=== PATIENT | male | born 1995 | race Caucasian/White ===

== ENCOUNTER → 2016-10-03 | Outpatient (CLI) | payer BC ==
--- NOTE | 2016-10-03 16:07 | CT ---
EXAMINATION TYPE: CT sinus wo con DATE OF EXAM: 10/03/2016 3:39 PM COMPARISON: NONE HISTORY: facial pressure and congestion. History of sinus surgery CT DLP: 673.[address] of the paranasal sinuses was performed in the axial and coronal planes. Bone and soft tissue settings are submitted. The paranasal sinuses demonstrate normal aeration and development. Large mucous retention cyst within the right maxillary sinus measuring 4.0 x 2.8 cm. Left maxillary s inus, ethmoid air cells, frontal sinus and sphenoid sinus are all well aerated. The osteal meatal units are patent bilaterally. The nasal septum is midline. No bony destructive changes are seen within the field of view. IMPRESSION: Large mucous retention cyst right maxillary sinus.
== END ==
LOC: RADCTMAIN 15:17
PROVIDERS: ATTEND Otolaryngology
DX: J34.1 Cyst and mucocele of nose and nasal sinus (principal)
CPT/HCPCS: 70486

== ENCOUNTER 2016-11-15 07:59 | Day surgery (SDC) | payer BC ==
[2016-11-13 14:24] VITALS: BMI 21.1
[~2016-11-15 07:59] MED LIST: ACETAMINOPHEN TAB 500 MG TAB PO ONE; CLINDAMYCIN 600 MG in DEXTROSE 5% IN WATER 50 ML IVPB ONE; DEXAMETHASONE SOD PHOSPHATE 10 MG/ML 1 ML VIAL IV ONE; DEXAMETHASONE SOD PHOSPHATE 4 MG/ML 1 ML VIAL IV ONE; FAMOTIDINE 20 MG/2 ML VIAL IV ONE; LACTATED RINGERS 1,000 ML IV SCH; LIDOCAINE 1% 20 ML VIAL (10MG/ML) FOR IV START INTRADERMA PRN; MIDAZOLAM 2 MG/2 ML VIAL IV PRN; ONDANSETRON 4 MG/2 ML VIAL IVP ONE; SCOPOLAMINE 1.5MG/72HR PATCH TRANSDERM ONE
[2016-11-15] MEDS ORDERED: OXYMETAZOLINE 0.05% NASL SPRAY 15 ML NASAL ONE ×4 (08:20→09:28)
[2016-11-15] MEDS ORDERED: LIDOCAINE 1% INJ 10MG/ML (20 ML MDV) ONE (09:00)
[2016-11-15] MEDS ORDERED: SUCCINYLCHOLINE CHLORIDE VIAL 200 MG/10 ML VIAL IV ONE (09:00)
[2016-11-15] MEDS ORDERED: fentaNYL (PF) 50 MCG/ML 2 ML AMP ONE (09:00)
[2016-11-15] MEDS ORDERED: PROPOFOL 10 MG/ML 20 ML VIAL IV ONE (09:00)
[2016-11-15] MEDS ORDERED: MIDAZOLAM 2 MG/2 ML VIAL ONE (09:00)
[2016-11-15] MEDS ORDERED: DEXAMETHASONE SOD PHOS (MDV) 100 MG/10 ML VIAL ONE (09:00)
[2016-11-15] MEDS ORDERED: BUPIVACAIN-EPI 0.5%-1:200,000 30 ML VIAL SQ ONE ×2 (09:13)
[2016-11-15] MEDS ORDERED: LIDOCAINE 1%-EPI 1:100,000 20 ML VIAL SUBMUCOSAL ONE ×2 (09:14)
[2016-11-15] MEDS ORDERED: EPINEPHrine 1 MG/ML (MDV) 30 ML VIAL TOPICAL ONE (09:15)
[2016-11-15 10:33] VITALS: TEMP 98
--- NOTE | 2016-11-15 10:33 | P.OP ---
Date of Procedure: 11/15/16 Preoperative Diagnosis: Chronic maxillary sinusitis Right maxillary sinus polyp Deviated nasal septum Postoperative Diagnosis: Same Procedure(s) Performed: Septoplasty Bilateral functional endoscopic sinus surgery with infraturbinal maxillary antrostomies and polyp removal Implants: Anesthesia: CRUZA Surgeon: Naun Senior Estimated Blood Loss (ml): 5 Pathology: other (Sinonasal) Condition: stable Disposition: PACU Indications for Procedure: Patient was bothered with persistent nasal obstruction and pressure the bilateral maxillary sinuses. CAT scan evaluation shows an extremely large obstructive polyp in the right maxillary sinus and pus was noted. Patient was also found have a deflection of the septum to the left. After long discussion we decided to proceed forward with a septoplasty and a bilateral endoscopic sinus surgery with maxillary antrostomy and polyp removal. Patient's symptoms are bilateral. All risks, benefits, and alternative therapies were discussed in detail. Consent was obtained and all questions were answered. Operative Findings: Massive right maxillary sinus polyp with bilateral maxillary sinus disease and a left septal deviation was noted Description of Procedure: This patient was taken to the operative room and placed in the supine position. A general inhalation anesthetic was administered to the patient by mask and subsequently intubated with a cuffed endotracheal tube by the department of anesthesia with a functioning IV line in place. The patient was monitored throughout the entire case. The septum lateral nasal wall were injected with lidocaine 1% with epinephrine 1 100,010 minutes were allowed wait for full vasoconstrictive effects to take place. At this time the nose was entered with use of endoscopes and we went underneath the inferior turbinates and nasal antral windows were opened. We did this with a Paulette and a microdebrider. We entered the maxillary sinuses bilaterally and we remove diseased tissue from the x-ray sinuses with use of 0 30 Severino man endoscopes. All diseased tissue and polyps were removed the right maxillary sinus had a particularly large polyp completely filling the maxillary sinus. At this time a caudal incision was made over the caudal portion of the left septum down to the mucoperichondrium mucoperichondrial flap was developed to the extent of visualization and the septum was analyzed. The septum was noted over to the left and there is a continued attachment superiorly and inferiorly with a large amount of cartilaginous memory present. We made some crosshatching incisions and brought the memory. We then inserted a PDS sheeting underneath the mucosa and so that in place. We closed the caudal incision with 4-0 Vicryl in a quilting stitch was used to reapproximate the septal flaps. We did insert a Merocel sponge packs which will be left in place for 1-2 days. Patient is a follow-up in the office 1 week.
[2016-11-15] MEDS: HYDROmorphone 1 MG/ML 1 ML SYRINGE IVP PRN ×2 (10:45→11:08)
[2016-11-15 11:56] VITALS: RESP 16
[2016-11-15 12:52] VITALS: BP 112/70; PULSE 78
== END 2016-11-15 12:50 | disposition home or self-care (01) ==
LOC: OR 07:59
PROVIDERS: ATTEND Otolaryngology
DX: J32.0 Chronic maxillary sinusitis (principal); J33.8 Other polyp of sinus; J34.2 Deviated nasal septum; Z88.1 Allergy status to other antibiotic agents; Z79.2 Long term (current) use of antibiotics; Z79.891 Long term (current) use of opiate analgesic; Z79.899 Other long term (current) drug therapy
CPT/HCPCS: 88305; 88300; 30520; 31267; C1713; J0171; J2250; J0330; J1100 ×2; J2405; J2001; J3010; J1170; J2704

== ENCOUNTER 2022-11-12 05:17 | Emergency (ER) | payer BC ==
[2022-11-12 05:24] VITALS: TEMP 98.3
--- NOTE | 2022-11-12 06:27 | ED ---
General Adult HPI - General Source: patient Mode of arrival: ambulatory Limitations: no limitations <Leodan Osman - Last Filed: 11/12/22 06:17> <Reny Short - Last Filed: 11/12/22 15:50> - General Chief complaint: Extremity Problem,Nontraumatic Stated complaint: Numbness in right arm, recent head injury Time Seen by Provider: 11/12/22 05:28 - History of Present Illness Initial comments: This is a 27-year-old male with no past medical history presents emergency department for intermittent right arm tingling as well as a head injury. The patient stated that on he was at a bachelor green party when he was drinking and climbed a fence, falling and landing face first on his forehead. The patient stated that he reportedly rolled off the ground trying to get up causing abrasion to the right side of his head in addition to the abrasion noted to the central forehead. The patient did state that he had of episode of vomiting right after this injury but he did not know that was secondary to the alcohol or the injury. The patient stated that he was improving over last several days but then woke up this morning at 3:30 in the morning with tingling in the right upper arm. The patient also reported difficulty in focusing and reported "cloudiness" over the last several days. The patient denied any other acute pain or complaints at this time. The patient was otherwise resting in bed comfortably without any acute distress. (Leodan Osman) - Related Data Previous Rx's Medication Instructions Recorded Hydrocodone/Acetaminophen [[place] 1 - 2 each PO Q6HR PRN #40 tab 11/15/16 5-325] Sulfamethox-Tmp 800-160Mg [Bactrim 1 tab PO Q12HR #20 tab 11/15/16 DS 800-160 mg] Allergies Allergy/AdvReac Type Severity Reaction Status Date / Time amoxicillin Allergy Rash/Hives Verified 11/12/22 05:24 Review of Systems ROS Other: All systems not noted in ROS Statement are negative. <Leodan Osman - Last Filed: 11/12/22 06:17> ROS Other: All systems not noted in ROS Statement are negative. <Reny Short - Last Filed: 11/12/22 15:50> ROS Statement: Those systems with pertinent positive or pertinent negative responses have been documented in the HPI. Past Medical History Past Medical History: No Reported History Additional Past Medical History / Comment(s): R Maxillary polyp History of Any Multi-Drug Resistant Organisms: None Reported Past Surgical History: No Surgical Hx Reported Additional Past Surgical History / Comment(s): Novacaine for teeth only. Additional Past Anesthesia/Blood Transfusion Reaction / Comment(s): Never has had anesthesia. Past Psychological History: No Psychological Hx Reported Smoking Status: Never smoker Past Alcohol Use History: Occasional Past Drug Use History: Marijuana - Past Family History Mother Family Medical History: No Reported History <Leodan Osman - Last Filed: 11/12/22 06:17> General Exam Limitations: no limitations General appearance: alert, in no apparent distress Head exam: Present: normocephalic, normal inspection, other (Abrasion noted to the anterior superior portion of the scalp as well as the left scalp) Eye exam: Present: normal appearance, PERRL Pupils: Present: normal accommodation ENT exam: Present: normal exam, normal oropharynx, mucous membranes moist Neck exam: Present: normal inspection, full ROM Respiratory exam: Present: normal lung sounds bilaterally Cardiovascular Exam: Present: regular rate, normal rhythm, normal heart sounds GI/Abdominal exam: Present: soft, normal bowel sounds Extremities exam: Present: normal inspection, full ROM, normal capillary refill Back exam: Present: normal inspection, full ROM Neurological exam: Present: alert, oriented X3, CN II-XII intact Psychiatric exam: Present: normal affect, normal mood Skin exam: Present: warm, dry <Leodan Osman - Last Filed: 11/12/22 06:17> Course Vital Signs 11/12/22 11/12/22 05:21 08:40 Temperature 98.3 F Pulse Rate 80 82 Respiratory 18 16 Rate Blood Pressure 123/77 112/70 O2 Sat by Pulse 98 99 Oximetry Medical Decision Making <Leodan Osman - Last Filed: 11/12/22 06:17> <Reny Short - Last Filed: 11/12/22 15:50> - Medical Decision Making Was pt. sent in by a medical professional or institution (, PA, COUNTY DIRECTOR, urgent care, hospital, or correction...) When possible be specific @ -No Did you speak to anyone other than the patient for history (EMS, parent, family, police, friend...)? What history was obtained from this source @ -No Did you review nursing and triage notes (agree or disagree)? Why? @ -I reviewed and agree with nursing and triage notes Were old charts reviewed (outside hosp., previous admission, EMS record, old EKG, old radiological studies, urgent care reports/EKG's, correction records)? Report findings @ -No old charts were reviewed Differential Diagnosis (chest pain, altered mental status, abdominal pain women, abdominal pain men, vaginal bleeding, weakness, fever, dyspnea, syncope, headache, dizziness, GI bleed, back pain, seizure, CVA, palpatations, mental health)? @ -Intracranial hemorrhage, concussion, abrasion EKG interpreted by me (3pts min.). @ -None X-rays interpreted by me (1pt min.). @ -None done CT interpreted by me (1pt min.). @ -CT head was obtained but was to pending at this time. U/S interpreted by me (1pt. min.). @ -None done What testing was considered but not performed or refused? (CT, X-rays, U/S, labs)? Why? @ -None What meds were considered but not given or refused? Why? @ -None Did you discuss the management of the patient with other professionals (professionals i.e. , PA, COUNTY DIRECTOR, lab, RT, psych nurse, social media assistant, long distance operator, teacher, chief mechanical officer, case planner)? Give summary @ -No Was smoking cessation discussed for >3mins.? @ -No Was critical care preformed (if so, how long)? @ -No Were there social determinants of health that impacted care today? How? (Homelessness, low income, unemployed, alcoholism, drug addiction, transportation, low edu. Level, literacy, decrease access to med. care, correction, rehab)? @ -No Was there de-escalation of care discussed even if they declined (Discuss DNR or withdrawal of care, Hospice)? DNR status @ -No What co-morbidities impacted this encounter? (DM, HTN, Smoking, COPD, CAD, Canc er, CVA, ARF, Chemo, Hep., AIDS, mental health diagnosis, sleep apnea, morbid obesity)? @ -None Was patient admitted / discharged? Hospital course, mention meds given and route, prescriptions, significant lab abnormalities, going to OR and other pertinent info. @ -The patient was seen and evaluated emergency department. Physical exam, the patient was resting in bed without any acute distress. Vital signs admission were stable. Due to the nature the patient's complaints, a CT head was obtained at this time. The patient remained stable and didn't have any other signs of trauma at this time. The CT head was still pending at this time and therefore will be signed out to Dr. Short at 0700 pending completion of the workup. The patient was admitted in stable condition. Undiagnosed new problem with uncertain prognosis? @ -No Drug Therapy requiring intensive monitoring for toxicity (Heparin, Nitro, Insulin, Cardizem)? @ -No Were any procedures done? @ -No Diagnosis/symptom? @ -Closed head injury, scalp abrasion, likely concussion Acute, or Chronic, or Acute on Chronic? @ -Acute Uncomplicated (without systemic symptoms) or Complicated (systemic symptoms)? @ -Uncomplicated Side effects of treatment? @ -No Exacerbation, Progression, or Severe Exacerbation? @ -No Poses a threat to life or bodily function? How? (Chest pain, [place], NH, pneumonia, PE, COPD, DKA, ARF, appy, cholecystitis, CVA, Diverticulitis, Homicidal, Suicidal, threat to staff... and all critical care pts) @ -No (Leodan Osman) Patient signed out to me awaiting CT. CT negative for any acute intra-cranial process. Results are discussed the patient. He feels comfortable discharge home at this time. Instructed to follow-up with his doctor in 2-4 days return for any new or worsening symptoms. Patient agreeable and discharged home in stable condition (Reny Short) Disposition <Leodan Osman - Last Filed: 11/12/22 06:17> Is patient prescribed a controlled substance at d/c from ED?: No Time of Disposition: 08:15 <Reny Short - Last Filed: 11/12/22 15:50> Clinical Impression: Head injury, Concussion Disposition: HOME SELF-CARE Condition: Stable Instructions (If sedation given, give patient instructions): Concussion (ED) Additional Instructions: Take Tylenol for any headaches. Follow up with your primary care doctor in 2-4 days. Return for any new or worsening symptoms Referrals: Anastacio Barron MD [Primary Care Provider] - 1-2 days
--- NOTE | 2022-11-12 07:38 | CT ---
EXAMINATION TYPE: CT brain wo con DATE OF EXAM: 11/12/2022 COMPARISON: None HISTORY: Trauma. fall hit head on cement [address] DLP: 1142.[address] of the brain was performed. The ventricles, basal cisterns and sulci overlying the cerebral convexities demonstrate a normal appe arance. There is no evidence for intracranial hemorrhage or sulcal effacement. No mass effects are seen. Osseous calvarium is intact. If symptoms persist consider MRI as clinically warranted. IMPRESSION: 1. No acute intracranial process is seen at this time.
[2022-11-12 08:42] VITALS: BP 112/70; PULSE 82; RESP 16
== END 2022-11-12 08:43 | disposition home or self-care (01) ==
LOC: EC 05:17
DX: S06.0XAA Concussion with loss of consciousness status unknown, initial encounter (principal); S00.01XA Abrasion of scalp, initial encounter; F12.90 Cannabis use, unspecified, uncomplicated; R40.2362 Coma scale, best motor response, obeys commands, at arrival to emergency department; R40.2142 Coma scale, eyes open, spontaneous, at arrival to emergency department; R40.2252 Coma scale, best verbal response, oriented, at arrival to emergency department; Z88.0 Allergy status to penicillin; W17.89XA Other fall from one level to another, initial encounter
CPT/HCPCS: 70450; 99284